=== PATIENT | female | born 1965 | race Caucasian/White ===

== ENCOUNTER 2024-03-21 15:39 | Outpatient (AMB) | payer OTHER, SELFPAY ==
--- NOTE | 2024-03-21 15:41 | AM.OFFWIN_ITS ---
Intake Vital Signs 03/21/24 15:45 Height 5 ft 8 in Weight 140 lb BMI 21.3 BP 118/62 Blood Pressure Location Rt brachial Position Sitting Pulse 90 Pulse Source Pulse Oximeter Temp 97.2 F Temp Source Temporal Artery Scan Pulse Oximetry (%) 97 Oxygen Delivery Method Room Air Intake Visit Reasons: SIMULATION TECH cough nasal drip Intake Note: pt is here for cough and nasal drip for 3 weeks Allergies No Known Allergies Allergy (Verified 03/21/24 15:46) Do you need a note to return to daycare/school/sports/work: No HPI HPI Comments History of Present Illness Details 59 y/o female patient who presents to [facility] with c/o Sneezing, runny nose and cough for 2 weeks now. Review of Systems Const All systems reviewed & are unremarkable except as noted in HPI and below Physical Exam Vital Signs: Last Vital Signs Temp 97.2 F 03/21/24 15:45 Pulse 90 03/21/24 15:45 BP 118/62 03/21/24 15:45 Pulse Ox 97 03/21/24 15:45 Oxygen Delivery Method Room Air 03/21/24 15:45 BMI result Body Mass Index 21.3 Const General: comfortable and no acute distress Nutritional Appearance: well nourished Orientation/consciousness: patient oriented x3 HEENT Head: Yes normocephalic Ears: external ears normal General nose exam: Normal nasal mucous membranes and turbinates present Face and sinus: Yes sinuses nontender Mouth: moist mucous membranes Throat: Yes posterior oropharynx normal Resp Effort & Inspection: normal respiratory effort and able to speak in complete sentences Auscultation: clear to auscultation bilaterally, no crackles, no rales, no rhonchi and no wheezes Cardio Rate: regular rate Rhythm: regular rhythm Neuro General: patient oriented x3, gait normal and moves all extremities Psych Speech and movement: Normal speech and movement present Assessment & Plan Assessment & Plan (1) Cough in adult: Code(s): R05.9 - Cough, unspecified Plan: - OTC cough remedies - Rest and hydrate with warm fluids - Take medicines as directed. Medications: New [id number] 5-10-100 mg/5 mL (Adult Robitussin Peak Cold M-S) 10 mL PO Q4H PRN 237 mL 0RF cold symptoms R05.9 - Cough, unspecified azithromycin 500 mg PO DAILY 3 days 3 tabs 0RF R05.9 - Cough, unspecified Coding Level of Care Code Est Pt Level 3 (47924) Diagnoses Cough in adult R05.9 Time Spent (min) 15
[2024-03-21 15:45] VITALS: BP 118/62; PULSE 90; TEMP 36.2; O2SAT 97; BMI 21.3
== END 2024-03-21 16:58 | disposition home or self-care (01) ==
PROVIDERS: Visit Provider Nurse Practitioner Family
DX: R05.9 Cough, unspecified (principal)
CPT/HCPCS: 99213